=== PATIENT | female | born 1950 | race Two or more races ===

== ENCOUNTER 2023-04-25 08:15 | Inpatient (IN) | payer OTHER ==
[~2023-04-25 08:15] MED LIST: ASA81 MG PO; HYZAAR 100-121 UDTAB PO; LOZOL PO
[2023-04-25] MEDS ORDERED: HYDROCHLOROTH12.5 MG PO (09:15)
[2023-04-25] MEDS ORDERED: METROPROLOL (09:16)
[2023-04-25 09:17] LABS: HEMATOCRIT 35.7 % (36.0-45.00); HEMOGLOBIN 12.1 g/dL (12.0-15.00); MEAN CORPUSCULAR HGB CONC 33.8 g/dl (32.0-36.0); PLATELET COUNT 240 K/uL (150-450); RED BLOOD COUNT 4.16 M/uL (4.00-6.00); RED CELL DISTRIBUTION WIDTH 15.2 % (11.5-14.5)
[2023-04-25 09:20] LABS: URINE APPEARANCE Clear; URINE BILIRRUBIN Negative (NEGATIVE); URINE BLOOD Negative; URINE COLOR Yellow; URINE GLUCOSE Negative (NEGATIVE); URINE LEUKOCYTE Moderate; URINE NITRATE Negative; URINE PROTEIN Negative (NEGATIVE); URINE UROBILINOGEN 0.2 E.U./dl
[2023-04-25 09:22] LABS: URINE BACTERIA 248.1 uL (0.0-1933); URINE EPITHELIAL CELLS 7.2 uL (0.0-38.8); URINE RBC 3.4 uL (0.0-20.8); URINE WBC 20.2 uL (0.0-23.2)
[2023-04-25 09:43] LABS: INR 1.36; PARTIAL THROMBOPLASTIN TIME 25.4 SECONDS (22.0-34.0)
[2023-04-25 09:49] LABS: ALBUMIN 3.7 gm/dL (3.4-5.0); BILIRUBIN TOTAL 0.81 mg/dL (0.3-1.2); CREATININE SERUM 0.7 mg/dL (0.55-1.02); GFR 81.8; GLOBULINA 4.1 G/DL (2.4-3.5); POTASSIUM 4.44 mEq/L (3.5-5.1); TOTAL PROTEIN 7.8 gm/dL (6.4-8.2)
[2023-05-03 01:13] LABS: HEMATOCRIT 33.5 % (36.0-45.00); MEAN CELL VOLUME 85.6 fL (80.00-100.00); MEAN CORPUSCULAR HEMOGLOBIN 28.2 pg (27.00-32.0); MEAN CORPUSCULAR HGB CONC 32.9 g/dl (32.0-36.0); PLATELET COUNT 221 K/uL (150-450); RED BLOOD COUNT 3.91 M/uL (4.00-6.00); RED CELL DISTRIBUTION WIDTH 14.8 % (11.5-14.5)
[2023-05-04 02:55] LABS: HEMATOCRIT 30.4 % (36.0-45.00); MEAN CORPUSCULAR HEMOGLOBIN 28.3 pg (27.00-32.0); MEAN CORPUSCULAR HGB CONC 32.9 g/dl (32.0-36.0); PLATELET COUNT 200 K/uL (150-450); RED BLOOD COUNT 3.54 M/uL (4.00-6.00); RED CELL DISTRIBUTION WIDTH 15.1 % (11.5-14.5)
[2023-05-04] MEDS ORDERED: XARELTO10 MG PO (13:29)
[2023-05-04] MEDS ORDERED: GABAPENTIN100 MG PO (13:29)
[2023-05-04] MEDS ORDERED: NORFLEX100MG PO (13:30)
[2023-05-04] MEDS ORDERED: OXYC1TAB9 PO (13:30)
== END 2023-05-04 17:59 | DRG 470 ==
LOC: O/R 05-02 06:10 → SURH 05-02 07:00 → OB/GYN 05-02 15:52 → SURG 05-02 15:52 → OB/GYN 05-02 15:52
PROVIDERS: ADMIT Orthopaedic Surgery; ATTEND Orthopaedic Surgery
PROC: 0SRD0JZ Replacement of Left Knee Joint with Synthetic Substitute, Open Approach (ICD-10-PCS; principal; 2023-05-02 07:00)
DX: M17.12 Unilateral primary osteoarthritis, left knee (principal); D62 Acute posthemorrhagic anemia; M85.662 Other cyst of bone, left lower leg; I10 Essential (primary) hypertension

== ENCOUNTER 2023-05-01 09:26 | Outpatient (CLI) | payer OTHER ==
[~2023-05-01 09:26] MED LIST changes: +HYDROCHLOROTH12.5 MG PO; +METROPROLOL
[2023-05-01 10:35] LABS: INR 1.32; PARTIAL THROMBOPLASTIN TIME 24.7 SECONDS (22.0-34.0); PROTHROMBIN TIME 13.6 SECONDS (9.0-11.5)
== END 2023-05-01 09:27 | disposition home or self-care (01) ==
LOC: LAB 09:26
PROVIDERS: ATTEND Internal Medicine
DX: D68.9 Coagulation defect, unspecified (principal)